=== PATIENT | female | born 1970 | race Caucasian/White ===

== ENCOUNTER 2016-10-30 19:46 | Emergency (ER) | payer MEDICAID ==
[2016-10-30 20:23] VITALS: BP 134/89
[2016-10-30] MEDS ORDERED: Ketorolac INJ* 60 MG/2 ML VIAL IM ONE (22:26)
[2016-10-30] MEDS ORDERED: Orphenadrine Citrate IV* 30 MG/ML 2 ML VIAL IM ONE (22:26)
--- NOTE | 2016-10-30 23:08 | ED ---
Complex/Multi-Sys Presentation - History Of Current Complaint Chief Complaint: EDGeneral Time Seen by Provider: 10/30/16 20:23 - Allergies/Home Medications Allergies/Adverse Reactions: Allergies Allergy/AdvReac Type Severity Reaction Status Date / Time Hydromorphone [From Dilaudid] Allergy Rash Verified 10/30/16 20:27 Morphine Allergy Rash Verified 10/30/16 20:27 PMH/Surg Hx/FS Hx/Imm Hx Infectious Disease History: No Infectious Disease History: Denies: Traveled Outside the [place] in Last 30 Days - Social History Alcohol Use: None Substance Use Type: Reports: None Smoking Status (MU): Never Smoked Tobacco Physical Exam Vital Signs On Initial Exam: Initial Vitals Temp Pulse Resp BP Pulse Ox 96.7 F 75 18 127/86 100 10/30/16 19:50 10/30/16 19:50 10/30/16 19:50 10/30/16 19:50 10/30/16 19:50 Diagnostics - Vital Signs Vital Signs Temp Pulse Resp BP Pulse Ox 10/30/16 20:19 96.7 F 75 18 134/89 100 10/30/16 19:50 96.7 F 75 18 127/86 100 - Laboratory Lab Statement: Any lab studies that have been ordered have been reviewed, and results considered in the medical decision making process. Complex Multi-Symp Course/Dx - Diagnoses Provider Diagnoses: Insomnia, Restless leg syndrome Discharge - Discharge Plan Condition: Stable Disposition: HOME Patient Education Materials: Restless Legs Syndrome (ED), Insomnia (ED) Additional Instructions: Take medications as prescribed. Follow up with primary care provider for medication discussion.
== END 2016-10-30 23:23 | disposition home or self-care (01) ==
LOC: ED 19:46
DX: G47.00 Insomnia, unspecified (principal); G25.81 Restless legs syndrome; Z88.5 Allergy status to narcotic agent
CPT/HCPCS: 96372; 99281; J1885; J2360

== ENCOUNTER 2016-11-27 15:26 | Inpatient (IN) | payer MEDICARE, MEDICAID ==
[2016-11-27 17:40] LABS: Urine Bacteria Absent (Absent); Urine Bilirubin Negative (Negative); Urine Glucose Negative (Negative); Urine Nitrite Negative (Negative)
[2016-11-27 18:00] LABS: Hematocrit 40 % (35-47); Hemoglobin 13.3 g/dl (12.0-16.0); Mean Corpuscular HGB Conc 34 g/dl (31-36); Mean Corpuscular Hemoglobin 32 pg (27-31); Mean Corpuscular Volume 94 fL (80-97); Mean Platelet Volume 9 um3 (7.4-10.4); Red Blood Count 4.22 10^6/ul (4.0-5.4); Red Cell Distribution Width 14 % (10.5-15); White Blood Count 11.8 10^3/ul (3.5-10.8)
[2016-11-27 18:03] LABS: Add Diff/Slide Review? Slide Review Added; Comments Flag Yes
[2016-11-27 18:07] LABS: Benzodiazepine Urine Screen None Detected (None Detect)
[2016-11-27 18:15] LABS: ALT 9 U/L (7-52); AST 15 U/L (13-39); Albumin 4.6 g/dL (3.2-5.2); Alkaline Phosphatase 66 U/L (34-104); Anion Gap 5 mmol/L (2-11); BUN/Creatinine Ratio 9.6 (8-20); Blood Urea Nitrogen 9 mg/dL (6-24); CO2 Carbon Dioxide 30 mmol/L (22-32); Calcium 9.8 mg/dL (8.6-10.3); Chloride 103 mmol/L (101-111); EGFR African American 82.4 (>60); EGFR Non-African American 64.1 (>60); Globulin 2.7 g/dL (2-4); Glucose 79 mg/dL (70-100); Sodium 138 mmol/L (133-145); Total Protein 7.3 g/dL (6.4-8.9)
[2016-11-27 18:34] LABS: Acetaminophen < 15 mcg/mL; Alcohol < 10 mg/dL (<10); Salicylate < 2.50 mg/dL (<30)
[2016-11-27 18:44] LABS: TSH (Thyroid Stimulating Horm) 1.11 mcIU/mL (0.34-5.60)
[2016-11-27] MEDS ORDERED: oxyCODONE TAB* 5 MG TAB PO ONE (21:02)
[2016-11-27] MEDS ORDERED: HYDROcodone/ACETAMIN 5-325 MG* 1 TAB PO ONE (21:02)
[2016-11-27] MEDS ORDERED: Al Hydrox/Mg Hydrox/Simet LIQ* 30 ML UDC PO PRN (21:59)
[2016-11-27] MEDS ORDERED: Acetaminophen TAB* 325 MG PO PRN (21:59)
[2016-11-27] MEDS: QUEtiapine XR TAB* 200 MG PO SCH (22:20)
[2016-11-27] MEDS: Pramipexole TAB* 0.125 MG PO SCH (22:21)
[2016-11-28] MEDS: Hydrocodone/Acetamin 10/325 1 TAB PO PRN ×4 (00:25→20:20)
[2016-11-28] MEDS: Mouth Piece, Nicotine* 1 EACH CARTRIDGE INH ONE ×2 (07:18→09:35)
--- NOTE | 2016-11-28 08:14 | ED ---
Milvia Garay Edward, scribed for Tyson Hannah MD on 11/27/16 at 1724 . Psychiatric Complaint - HPI Summary HPI Summary: 46 y/o female presents to the ED c/o chronic depression and suicidal thoughts. Patient states she moved to [place] in August of 2016, but that her sx have been going on for a while before. Patient states she has lost her appetite and had sleep disturbance. She also c/o SI thoughts and attempts. PMHx depression and anxiety. - History Of Current Complaint Chief Complaint: EDMentalHealth Time Seen by Provider: 11/27/16 16:48 Hx Obtained From: Patient Onset/Duration: Gradual Onset, Lasting Weeks, Still Present Character: Depressed, Anxious Associated Signs And Symptoms: Positive: Sleep Disturbance, Appetite Change Has Suicidal: Reports: Thoughts. Denies: With A Plan - Allergies/Home Medications Allergies/Adverse Reactions: Allergies Allergy/AdvReac Type Severity Reaction Status Date / Time Hydromorphone [From Dilaudid] Allergy Rash Verified 11/27/16 20:45 Morphine Allergy Rash Verified 11/27/16 20:45 PMH/Surg Hx/FS Hx/Imm Hx Previously Healthy: No Psychiatric History: Reports: Hx Anxiety, Hx Depression Infectious Disease History: Denies: Traveled Outside the [place] in Last 30 Days - Social History Alcohol Use: None Hx Substance Use: No Substance Use Type: Reports: None Hx Tobacco Use: Yes Smoking Status (MU): Current Every Day Smoker Type: Cigarettes Review of Systems Constitutional: Negative Eyes: Negative ENT: Negative Cardiovascular: Negative Respiratory: Negative Gastrointestinal: Negative Genitourinary: Negative Musculoskeletal: Negative Skin: Negative Neurological: Negative Positive: Anxious, Depressed, Other - Loss of appetite, sleep disturbance, SI thoughts without a plan All Other Systems Reviewed And Are Negative: Yes Physical Exam - Summary Physical Exam Summary: VITAL SIGNS:~Reviewed. GENERAL:~ Patient is a well-developed and nourished female who is lying comfortable in the stretcher.~ Patient is not in any acute respiratory distress. HEAD AND FACE:~No signs of trauma.~ No ecchymosis, hematomas or skull depressions. No sinus tenderness. EYES:~PERRLA, EOMI x 2, No injected conjunctiva, no nystagmus. EARS:~Hearing grossly intact. Ear canals and tympanic membranes are within normal limits. MOUTH:~Oropharynx within normal limits. NECK:~Supple, trachea is midline, no adenopathy, no JVD, no carotid bruit, no c- spine tenderness, neck with full ROM. CHEST:~Symmetric, no tenderness at palpation LUNGS:~Clear to auscultation bilaterally. No wheezing or crackles. CVS:~Regular rate and rhythm, S1 and S2 present, no murmurs or gallops appreciated. ABDOMEN:~Soft, non-tender. No signs of distention. No rebound no guarding, and no masses palpated. Bowel sounds are normal. EXTREMITIES:~FROM in all major joints, no edema, no cyanosis or clubbing. NEURO:~Alert and oriented x 3. No acute neurological deficits. Speech is normal and follows commands. SKIN:~Dry and warm PSYCH:~Depressed, quiet, and has suicidal thoughts without a plan. No homicidal thoughts or plan. No signs of psychosis or pressure speech. No tangential speech. Triage Information Reviewed: Yes Vital Signs On Initial Exam: Initial Vitals Temp Pulse Resp BP Pulse Ox 99.3 F 90 20 116/86 97 11/27/16 15:29 11/27/16 15:29 11/27/16 15:29 11/27/16 15:29 11/27/16 15:29 Vital Signs Reviewed: Yes Diagnostics - Vital Signs Vital Signs Temp Pulse Resp BP Pulse Ox 11/27/16 15:29 99.3 F 90 20 116/86 97 - Laboratory Lab Results: Lab Results 11/27/16 11/27/16 11/27/16 Range/Units 17:17 17:17 17:52 WBC 11.8 H (3.5-10.8) 10^3/ul RBC 4.22 (4.0-5.4) 10^6/ul Hgb 13.3 (12.0-16.0) g/dl Hct 40 (35-47) % MCV 94 (80-97) fL MCH 32 H (27-31) pg MCHC 34 (31-36) g/dl RDW 14 (10.5-15) % Plt Count 269 (150-450) 10^3/ul MPV 9 (7.4-10.4) um3 Neut % (Auto) 44.5 (38-83) % Lymph % (Auto) 43.8 (25-47) % Kent % (Auto) 6.9 (1-9) % Eos % (Auto) 3.9 (0-6) % Baso % (Auto) 0.9 (0-2) % Absolute Neuts (auto) 5.2 (1.5-7.7) 10^3/ul Absolute Lymphs (auto) 5.2 H (1.0-4.8) 10^3/ul Absolute Monos (auto) 0.8 (0-0.8) 10^3/ul Absolute Eos (auto) 0.5 (0-0.6) 10^3/ul Absolute Basos (auto) 0.1 (0-0.2) 10^3/ul Absolute Nucleated RBC 0.01 10^3/ul Nucleated RBC % 0.1 Hem Pathologist Commnt Pending Sodium (133-145) mmol/L Potassium (3.5-5.0) mmol/L Chloride (101-111) mmol/L Carbon Dioxide (22-32) mmol/L Anion Gap (2-11) mmol/L BUN (6-24) mg/dL Creatinine (0.51-0.95) mg/dL Est GFR ( Amer) (>60) Est GFR (Non-Af Amer) (>60) BUN/Creatinine Ratio (8-20) Glucose (70-100) mg/dL Calcium (8.6-10.3) mg/dL Total Bilirubin (0.2-1.0) mg/dL AST (13-39) U/L ALT (7-52) U/L Alkaline Phosphatase (34-104) U/L Total Protein (6.4-8.9) g/dL Albumin (3.2-5.2) g/dL Globulin (2-4) g/dL Albumin/Globulin Ratio (1-3) TSH (0.34-5.60) mcIU/mL Urine Color Yellow Urine Appearance Clear Urine pH 6.0 (5-9) Ur Specific Hol[place] 1.005 L (1.010-1.030) Urine Protein Negative (Negative) Urine Ketones Negative (Negative) Urine Blood 1+ H (Negative) Urine Nitrate Negative (Negative) Urine Bilirubin Negative (Negative) Urine Urobilinogen Negative (Negative) Ur Leukocyte Esterase Negative (Negative) Urine WBC (Auto) Trace(0-5/hpf) (Absent) Urine RBC (Auto) Trace(0-2/hpf) (Absent) Ur Squamous Epith Cells Present H (Absent) Ur Renal Epithelial Cell Present H (Absent) Urine Bacteria Absent (Absent) Urine Glucose Negative (Negative) Salicylates (<30) mg/dL Urine Opiates Screen Presumptive positive H (None Detect) Acetaminophen mcg/mL Ur Barbiturates Screen None detected (None Detect) Ur Phencyclidine Scrn None detected (None Detect) Ur Amphetamines Screen None detected (None Detect) U Benzodiazepines Scrn None detected (None Detect) Urine Cocaine Screen None detected (None Detect) U Cannabinoids Screen None detected (None Detect) Serum Alcohol (<10) mg/dL 11/27/16 Range/Units 17:52 WBC (3.5-10.8) 10^3/ul RBC (4.0-5.4) 10^6/ul Hgb (12.0-16.0) g/dl Hct (35-47) % MCV (80-97) fL MCH (27-31) pg MCHC (31-36) g/dl RDW (10.5-15) % Plt Count (150-450) 10^3/ul MPV (7.4-10.4) um3 Neut % (Auto) (38-83) % Lymph % (Auto) (25-47) % Kent % (Auto) (1-9) % Eos % (Auto) (0-6) % Baso % (Auto) (0-2) % Absolute Neuts (auto) (1.5-7.7) 10^3/ul Absolute Lymphs (auto) (1.0-4.8) 10^3/ul Absolute Monos (auto) (0-0.8) 10^3/ul Absolute Eos (auto) (0-0.6) 10^3/ul Absolute Basos (auto) (0-0.2) 10^3/ul Absolute Nucleated RBC 10^3/ul Nucleated RBC % Hem Pathologist Commnt Sodium 138 (133-145) mmol/L Potassium 4.0 (3.5-5.0) mmol/L Chloride 103 (101-111) mmol/L Carbon Dioxide 30 (22-32) mmol/L Anion Gap 5 (2-11) mmol/L BUN 9 (6-24) mg/dL Creatinine 0.94 (0.51-0.95) mg/dL Est GFR ( Amer) 82.4 (>60) Est GFR (Non-Af Amer) 64.1 (>60) BUN/Creatinine Ratio 9.6 (8-20) Glucose 79 (70-100) mg/dL Calcium 9.8 (8.6-10.3) mg/dL Total Bilirubin 0.40 (0.2-1.0) mg/dL AST 15 (13-39) U/L ALT 9 (7-52) U/L Alkaline Phosphatase 66 (34-104) U/L Total Protein 7.3 (6.4-8.9) g/dL Albumin 4.6 (3.2-5.2) g/dL Globulin 2.7 (2-4) g/dL Albumin/Globulin Ratio 1.7 (1-3) TSH 1.11 (0.34-5.60) mcIU/mL Urine Color Urine Appearance Urine pH (5-9) Ur Specific Hol[place] (1.010-1.030) Urine Protein (Negative) Urine Ketones (Negative) Urine Blood (Negative) Urine Nitrate (Negative) Urine Bilirubin (Negative) Urine Urobilinogen (Negative) Ur Leukocyte Esterase (Negative) Urine WBC (Auto) (Absent) Urine RBC (Auto) (Absent) Ur Squamous Epith Cells (Absent) Ur Renal Epithelial Cell (Absent) Urine Bacteria (Absent) Urine Glucose (Negative) Salicylates < 2.50 (<30) mg/dL Urine Opiates Screen (None Detect) Acetaminophen < 15 mcg/mL Ur Barbiturates Screen (None Detect) Ur Phencyclidine Scrn (None Detect) Ur Amphetamines Screen (None Detect) U Benzodiazepines Scrn (None Detect) Urine Cocaine Screen (None Detect) U Cannabinoids Screen (None Detect) Serum Alcohol < 10 (<10) mg/dL Result Diagrams: 11/27/16 17:52 11/27/16 17:52 Lab Statement: Any lab studies that have been ordered have been reviewed, and results considered in the medical decision making process. Course/Dx - Course Assessment/Plan: 46 y/o female presents to the ED c/o chronic depression and suicidal thoughts. Patient states she moved to [place] in August of 2016, but that her sx have been going on for a while before. Patient states she has lost her appetite and had sleep disturbance. She also c/o SI thoughts and attempts. PMHx depression and anxiety. Test results were without significant abnormalities except WBC 11.8. Positive for presumptive opiates. At this point the patient was medically clear and waiting mental health evaluation. Pt will be signed out to Dr. Valle to follow up the MHU evaluation. The patient is hemodynamically stable and A&Ox3. - Differential Dx/Clinical Impression Differential Diagnosis/HQI/PQRI: Positive: Depression, Suicidal Ideation Provider Diagnosis: Depression, Suicidal ideation Discharge - Discharge Plan Condition: Stable Disposition: OTHER Discharge Disposition Comment: Sign out to Dr. Valle, awaiting MHU evaluation. The documentation as recorded by the Milvia francis Edward accurately reflects the service I personally performed and the decisions made by , Tyson Hannah MD.
[2016-11-28] MEDS: Vitamin THERAPEUTIC TAB PO SCH (08:44)
[2016-11-28] MEDS: Nicotine Inhaler* 10 MG AMP INH PRN ×2 (09:35→15:30)
[2016-11-28] MEDS ORDERED: traZODone TAB* 50 MG TAB PO PRN (12:31)
[2016-11-28] MEDS: Venlafaxine EXT RELEASE CAP* 37.5 MG PO SCH (12:55)
--- NOTE | 2016-11-28 16:33 | ADMNOTE ---
Identification - Identify Employment Status: Disabled Hx Psychiatric Hospitalization: Yes - In [place] 10 years ago Arrived to Hospital Via: Ambulatory History - Objective HPI: 46 y/o disabled WF with depression for a long time brought self to the Ed due to worsening of depressive symptoms over last several months to a point that she cannot take it any more and thought about ending her life either by jumping off the roof or shooting self with a gun. Says she feels terribly sad, crying all the time, feeling helpless, worthless and a burden on her brother. Exam Appearance: Thin Framed Hygiene: Normal Grooming: Disheveled Psychomotor Activities: Normal Exhibits Abnormal Movement: No Attitude and Relatedness: Superficially Cooperative Eye Contact: Fair - Speech Quality: Pressured Latencies: Normal Quantity: Appropriate Patient's Decription of Mood: "Okay" Observed Affect: Constricted Patient's Thought Process: Circumstantial Thought Content: No Passive Wish, No Suicidal Planning, No Homicidal Ideation, No Paranoid Ideation Experiencing Hallucinations: No, Sensorium is Clear Type of Hallucinations: Visual: No, Auditory: No, Command: No Level of Consciousness: Alert Orientation: Yes Intact, Yes Orientated to Time, Yes Orientated to Place, Yes Orientated to Person Impulse Control: Poor Insight and Judgement: Impaired Impression - Impression Clinical Impression: 46 y/o WF with a long h/o depression, a prior h/o OD admitted on ICU following an OD on over the counter sleep aid resulting in an ICU admission. She appears to be evassive, manipulative and minimizing the intensity of use of sleeping pill raising a concern of her safely at home where she lives alone. Evidently her insight and judgment is so poor that she is unable to acknowledge the dangers involved in her use of both prescribed and over the counter meds. She is unwilling to take meds to help her depression and remaines an unreliable historian. Merits Inpatient Hospitalization: Yes - [place] [facility] Mental Illness: MDD, recurrent, severe w/o psychosis - [place] [facility] Medical Illness: S/P OD Plan - Treatment Plan Continued Medication Management: Consider Medication Medications: Current Medications Acetaminophen (Tylenol Tab*) 650 mg PO Q4H PRN PRN Reason: PAIN or TEMP > 101 F Hydrocodone Bitart/Acetaminophen ([place] 10/325 (Nf)) 1 tab PO TID PRN PRN Reason: PAIN Last Admin: 11/28/16 13:22 Dose: 1 tab Al Hydrox/Mg Hydrox/Simethicone (Maalox Plus*) 30 ml PO Q4H PRN PRN Reason: INDIGESTION Multivitamins (Theragran Tab*) 1 tab PO DAILY [facility] Last Admin: 11/28/16 08:44 Dose: 1 tab Nicotine (Nicotine Inhaler*) 10 mg INH Q2H PRN PRN Reason: CRAVING Last Admin: 11/28/16 15:30 Dose: 10 mg Pramipexole Dihydrochloride (Mirapex Tab*) 0.25 mg PO BEDTIME [facility] Last Admin: 11/27/16 22:21 Dose: 0.25 mg Quetiapine Fumarate (Seroquel Xr Tab*) 400 mg PO BEDTIME [facility] Last Admin: 11/27/16 22:20 Dose: 400 mg Trazodone HCl (Desyrel Tab*) 50 mg PO BEDTIME PRN PRN Reason: AGITATION/INSOMNIA Venlafaxine HCl (Effexor Xr Cap*) 37.5 mg PO DAILY [facility] Last Admin: 11/28/16 12:55 Dose: 37.5 mg - Discharge Plan Discharge Plan: Inpatient Hospitalization - On BSU.
[2016-11-28] MEDS: QUEtiapine XR TAB* 200 MG PO SCH (21:01)
[2016-11-28] MEDS: Pramipexole TAB* 0.125 MG PO SCH (21:02)
--- NOTE | 2016-11-28 21:33 | HP ---
HISTORY AND PHYSICAL: DATE OF ADMISSION: IDENTIFYING DATA: Madeleine is a 46-year-old both mentally and physically disabled female w ith one prior history of hospitalization in [place] years ago, came to the [facility] Emergency Department advised by her [facility] therapist for a psychia tric evaluation in the context of worsening depression and ongoing suicidal ideation with plans. CHIEF COMPLAINT: "I have been so depressed for months now." HISTORY OF PRESENT ILLNESS: Madeleine with a history of depression for years reports that her depress ion has been gradually worsening over the last few months. It is so bad now that she cannot take it anymore and was thinking about either jumping off a roof or shoot herself with firearms. She descr ibes her depression as terrible, sadness, crying almost all the time, lethargic, unmotivated, and ho peless. She does not think her life is worth it living like this any more, feels guilty about being a burden on her older brother, who has to take care of her all the time. She has not been showerin g or bathing for months now and does not have any desire to do so. She does not eat because she benites s not have any appetite and her sleep is terribly poor. Said she sleeps approximately 3 to 4 hours per night, even if she falls asleep, wakes up within no time and cannot go back to sleep again. Alt joao she suffers from restless legs syndrome, her symptoms were in good control since she was put o n medications for restless legs syndrome. She denies any stressors at this time. PAST PSYCHIATRIC HISTORY: Remarkable for another hospitalization years ago in [place] under almost similar circumstances. She goes to [facility] and sees Dr. Garcia and a therapist. Throughout the years, she was tried on different antidepressants and other medicat ions for depression. She reports that Zoloft, Paxil, and Wellbutrin were worse because of their side effects. She took Effexor long time ago for years. She says she never had any serious side effect from Effexor, although does not remember how effective Effexor was. PAST MEDICAL HISTORY: Remarkable for scoliosis and restless legs syndrome. ALLERGIES: She has allergies to multiple medications including HYDROMORPHONE and MORPHINE both of w hich causes rash. SUBSTANCE ABUSE HISTORY: Denies using any drugs or alcohol. FAMILY HISTORY: Madeleine is from an intact family, she has one older brother and a sister. She also has 2 sons, one 18-year-old and the other 16-year-old. Of all these family members, she thinks her mother was seriously depressed; however, never received any treatment. Her sister and older son pierce ffer from depression and they are under treatment. Her son was hospitalized as well. She reports t hat her mother was adopted and does not know if there are extended family members who have had menta l illness. PERSONAL AND SOCIAL HISTORY: Madeleine had a pretty normal upbringing up until years ago when she bec ant physically incapable of doing anything because of her scoliosis. At the same time, she also suf fered from depression. She was and has 2 sons, 18-year-old and 16-year-old boys, who live [facility] with their dad. 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 Currently disabled on [facility] disability benefits. She [place] older [place]'s [place] Denies any legal problems. PHYSICAL EXAMINATION Physical exam was offered, Madeleine flatly declined. I have reviewed her vital signs, labs as well a s physical done in the emergency department, which were unremarkable. She does not appear to be in any kind of physical distress at this time. Her vitals show a blood pressure of 116/86, pulse of 90 , respirations 20, pulse ox 97%. MENTAL STATUS EXAMINATION: Madeleine is a thin-framed, short-statured, female with poor pe rsonal hygiene and grooming. She is wearing a hospital scrub. She is alert and oriented to time, pl abisai, and person, makes poor eye contact, mostly tearful during the entire evaluation process. Descr ibes her mood as depressed. Observed affect, tearful and dysphoric. There is no evidence of though ts, perceptual, or psychomotor disturbances. Continues to have active suicidal thoughts and plans i f she has a chance to get up on the roof and jump, or have access to gun to shoot herself. Memory f unction is intact in all spheres. Intelligence appears to be average as evidenced by her educational background, vocabulary, and fund of knowledge. Insight and judgment: Intact. LABORATORY DATA: Include CBC with differential, comprehensive metabolic profile, urinalysis, and ur ine drug screen. CBC shows a WBC of 11.8, which is higher than normal, hemoglobin 13.3, hematocrit 40, MCV 94 which is on the higher normal range, platelet count 296, rest of the results shows normal report. Comprehensive metabolic profile shows a sodium level of 138, potassium 4, chloride 103, ca rbon dioxide 30, BUN 9, creatinine 0.94, GFR of 64.1. Hepatic profile is within normal limits. Tox screen negative. Urinalysis also was unremarkable. SUMMARY: This 46-year-old female with long history of depression and physical disability presents to the emergency department complaining of worsening of depressive symptoms in recent month s to the point that she became suicidal with plans. MENTAL HEALTH DIAGNOSIS: Major depressive disorder, recurrent, severe without psychotic features. PHYSICAL HEALTH DIAGNOSES: Scoliosis and restless legs syndrome. TREATMENT RECOMMENDATIONS: Madeleine will remain hospitalized on behavioral health unit for her safet y, diagnostic evaluation, and medication management. Her code status will remain full. Supportive milieu, individual, and group therapy will be initiated. I will continue her on her outpatient medi cations and add Effexor XR 37.5 mg daily. To help her sleep, I will consider trazodone to begin wit h and see how she does, otherwise may try some other sleep aid. [id number]/[facility] #: [id number]
[2016-11-29] MEDS: Vitamin THERAPEUTIC TAB PO SCH (09:55)
[2016-11-29] MEDS: Venlafaxine EXT RELEASE CAP* 37.5 MG PO SCH (09:55)
[2016-11-29] MEDS: Hydrocodone/Acetamin 10/325 1 TAB PO PRN ×3 (11:09→21:20)
[2016-11-29] MEDS: Nicotine Inhaler* 10 MG AMP INH PRN (20:19)
[2016-11-29] MEDS: Pramipexole TAB* 0.125 MG PO SCH (21:16)
[2016-11-29] MEDS: QUEtiapine XR TAB* 200 MG PO SCH (21:16)
[2016-11-30] MEDS: Vitamin THERAPEUTIC TAB PO SCH (08:54)
[2016-11-30] MEDS: Hydrocodone/Acetamin 10/325 1 TAB PO PRN ×3 (08:56→20:09)
[2016-11-30] MEDS: Venlafaxine EXT RELEASE CAP* 37.5 MG PO SCH (09:07)
--- NOTE | 2016-11-30 11:38 | PN ---
MHU: Group Therapy Note - Service Type Service Type: [id number] Group Psychotherapy - Cognitive Behavioral Group Therapy ( CBT):Patient was attentive and participatory in CBT programming this morning, and remained in good behavioral control. Patient expressed positive insights regarding relevant treatment interventions and goals.
[2016-11-30] MEDS ORDERED: QUEtiapine TAB* 100 MG PO PRN (16:06)
--- NOTE | 2016-11-30 16:22 | PN ---
Subjective - Subjective Subjective: Patient reports feeling "tired" and anxious. She endorses continued depression. She states she felt shaky and "overstimulated" with trial of effexor. She states that most medications have drastic side effects. She reports recent trials of saphris and viibryd caused severe nausea and vomiting. Xiomara states she moved to the area from [place] in august. Since then , she had to change from methadone to vicodin for pain control due to insurance and medication interactions. She is now taking mirapex for restless leg syndrome and that has many drug-drug interactions. However, she continues to have poor sleep due to frequent interruption and early waking. I-stop denotes consistent information: clonazepam from Dr Garcia, methadone then vicodin from PCP, Dr Taylor. [facility] ref#[id number]. Objective - Appearance Appearance: Thin Framed Dysmorphic Features: Yes Hygiene: Normal Grooming: Well Kept - Behavior Psychomotor Activities: Abnormal-Decreased Exhibits Abnormal Movement: No - Attitude and Relatedness Attitude and Relatedness: Cooperative Eye Contact: Good - Speech Quality: Unpressured Latencies: Normal Quantity: Appropriate - Mood Patient's Decription of Mood: "tired" - Affect Observed Affect: Depressed Affect Consistent with: Dysphoria - Thought Process Patient's Thought Process: Coherent, Goal Directed Thought Content: No Passive Wish, No Suicidal Planning, No Homicidal Ideation, No Paranoid Ideation - Sensorium Experiencing Hallucinations: No, Sensorium is Clear Type of Hallucinations: Visual: No, Auditory: No, Command: No - Level of Consciousness Level of Consciousness: Alert Orientation: Yes Intact, Yes Orientated to Time, Yes Orientated to Place, Yes Orientated to Person - Impulse Control Impulse Control: Intact - Insight and Judgement Insight and Judgement: Good - Group Participation Particating in Group Activities: Yes Assessment - Assessment Merits Inpatient Hospitalization: For Immediate Safety, To Initiate Treatment, For Discharge Planning Inpatient DSM-IV Dx: major depressive d/o; insomnia. axis III: scoliosis Clinical Impression: Xiomara is a 46yo white female who relocated to the area from [place] in August of this year. She reports feeling depressed, overwhelmed and unable to sleep due to depression and stressors. She reports many trials of psychopharmacology, complicated by side effects and drug interactions with medications for scoliosis. Plan - Plan Treatment Plan: Name: XIOMARA LUDWIG Birthdate: 1970 [id number] Change quetiapine XR to earlier in the evening and add prn IR dose. Decrease safety checks to q30 min and allow staff pass. Continue supportive milieu and individual, group therapy. Discharge planning to include outpatient providers. Continued Medication Management: Different Medication Medications: Current Medications Acetaminophen (Tylenol Tab*) 650 mg PO Q4H PRN PRN Reason: PAIN or TEMP > 101 F Hydrocodone Bitart/Acetaminophen (Himrod 10/325 (Nf)) 1 tab PO TID PRN PRN Reason: PAIN Last Admin: 11/30/16 14:02 Dose: 1 tab Al Hydrox/Mg Hydrox/Simethicone (Maalox Plus*) 30 ml PO Q4H PRN PRN Reason: INDIGESTION Clonazepam (Klonopin Tab(*)) 1 mg PO BID PRN PRN Reason: ANXIETY Multivitamins (Theragran Tab*) 1 tab PO DAILY CHRISTOFER Last Admin: 11/30/16 08:54 Dose: 1 tab Nicotine (Nicotine Inhaler*) 10 mg INH Q2H PRN PRN Reason: CRAVING Last Admin: 11/29/16 20:19 Dose: 10 mg Pramipexole Dihydrochloride (Mirapex Tab*) 0.25 mg PO BEDTIME CHRISTOFER Last Admin: 11/29/16 21:16 Dose: 0.25 mg Quetiapine Fumarate (Seroquel Tab*) 100 mg PO BEDTIME PRN PRN Reason: INSOMNIA Quetiapine Fumarate (Seroquel Xr Tab*) 400 mg PO 1999 [facility] - Discharge Plan Discharge Plan: Outpatient Follow Up Outpatient Program: [facility]
[2016-11-30] MEDS ORDERED: QUEtiapine XR TAB* 200 MG PO SCH (20:00)
[2016-11-30] MEDS: Pramipexole TAB* 0.125 MG PO SCH (20:10)
[2016-11-30] MEDS: clonazePAM TAB(*) 1 MG PO PRN (20:11)
[2016-12-01 07:24] VITALS: BP 115/67
[2016-12-01] MEDS: Hydrocodone/Acetamin 10/325 1 TAB PO PRN (08:57)
[2016-12-01] MEDS: Vitamin THERAPEUTIC TAB PO SCH (08:57)
[2016-12-01] MEDS: clonazePAM TAB(*) 1 MG PO PRN (12:51)
[2016-12-01] MEDS: Nicotine Inhaler* 10 MG AMP INH PRN (12:51)
--- NOTE | 2016-12-01 13:56 | PN ---
[facility]: Group Therapy Note - Service Type Service Type: [id number] Group Psychotherapy - Cognitive Behavioral Group Therapy ( CBT):Patient was attentive and participatory in CBT programming this morning, and remained in good behavioral control. Patient expressed positive insights regarding relevant treatment interventions and goals.
--- NOTE | 2016-12-01 15:02 | DS ---
CC: Dr. Jett Taylor* DATE OF ADMISSION: 11/27/2016. DATE OF DISCHARGE: 12/01/2016. SUPERVISING PSYCHIATRIST: Dr. Tony Smith* (dictated by LAKIA Chandler) . DISCHARGE DIAGNOSES: AXIS I: Major depressive disorder, recurrent, severe without psychotic features ; generalized anxiety disorder. AXIS II: Deferred. AXIS III: Scoliosis and restless leg syndrome. AXIS IV: Moderate stressors related to transitioning from another state and social isolation; and stressors related to pain control and primary medical care. AXIS V: 45. CONDITION AT THE TIME OF DISCHARGE: Improved. Madeleine reports much improved mood and denies SI since admission. She reports some improvement in sleep, which was a large attributing factor to her presentation. Madeleine reports that she is coping with transition from moving from [place] to the [facility]. She states she has a very good rapport with her outpatient therapist and is looking forward to returning to an appointment with her on . Madeleine was in agreement with discharge planning suggestion for help with case management. MENTAL STATUS EXAM: Madeleine was well-groomed and present in the milieu. She is a small, thin-framed, petite woman who appears her stated age. She is dressed in her own clothes and walks with a walker. She presents as euthymic, cooperative and talkative. She is alert and oriented times three. Concentration is good. Recall is 3/3. Her mood is "good." Affect is congruent. Her speech is soft and articulate. Thought process is logical and goal-directed, coherent. Thought content negative for SI, HI, , or SIB urges. Negative for preoccupations, delusions, or phobias. Her insight is good. Her judgment is good. Fund of knowledge is excellent. HOSPITAL COURSE: Reason for admission: Madeleine presented to the emergency room as advised by her therapist from [facility] due to worsening depression and SI with plan. Madeleine has a history of major depressive disorder, along with worsening physical problems of scoliosis and restless leg syndrome. She relocated to the area from [place] in August of this year. Psychiatric treatment rendered: Madeleine was admitted to the Adult Mental Health Unit under voluntary status. She was placed on 15 minute checks and her code status was full. She was encouraged to engage in supportive milieu, individual and group therapy. The admitting physician added Venlafaxine XR 37.5 mg. She stopped taking this due to feeling overstimulated. Trazodone was also ordered, but Madeleine recalls feeling a paroxysmal effect with this medication in the past, so she did not take this either. She was agreeable to the extended release of Quetiapine 400 mg, as well as quetiapine immediate release 100 mg prn insomnia. She reports a long history of Klonopin use 1 mg b.i.d. and requested that this be reinitiated. She reports improvement in sleep with these medications. After three days on the unit, she denied suicidal ideation. She reported her mood to be improved. She was safe on all checks and she was forward thinking. She wanted to make sure she would be discharged in time for her appointment with her therapist on . She agreed to discharge planning, assistance with setting up case management. She will see therapist, Kate on and psychiatrist Dr. Garcia at [facility] in the next month. She will be given discharge instructions from nursing staff. She called her brother to pick her up today, which he will do so after he gets off work at 5:00 p.m. FERMÍN FINNEGAN NP [id number]/[facility] #: [id number] MANUEL
== END 2016-12-01 15:07 | disposition home or self-care (01) | DRG 885 ==
LOC: ED 15:26 → BSU 21:54
PROVIDERS: ADMIT Psychiatry & Neurology Psychiatry; ATTEND Psychiatry & Neurology Psychiatry
PROC: GZHZZZZ Group Psychotherapy (ICD-10-PCS; principal; 2016-11-27)
DX: F33.2 Major depressive disorder, recurrent severe without psychotic features (principal); M41.9 Scoliosis, unspecified; F41.1 Generalized anxiety disorder; G25.81 Restless legs syndrome; F17.210 Nicotine dependence, cigarettes, uncomplicated; G47.00 Insomnia, unspecified; Z88.5 Allergy status to narcotic agent; Z81.8 Family history of other mental and behavioral disorders
CPT/HCPCS: 36415; 80053; 80307; 80320; 80329; 81003; 81015; 84443; 85025; 85060; 90853; 99222; 99231; 99238; A9270-GY; G0480

== ENCOUNTER 2018-01-31 19:20 | Emergency (ER) | payer MEDICARE, MEDICAID ==
[2018-01-31] MEDS ORDERED: Diazepam TAB(*) 5 MG PO ONE (21:25)
[2018-01-31] MEDS ORDERED: predniSONE TAB* 20 MG PO ONE (21:25)
--- OUTSIDE RECORDS SUMMARY | 2018-01-31 21:27 | XMS REPORT ---
:1970 External Reference #:[id number] Author Organization [facility] Address [address] [address] [place] [address] Phone [phone] Care Team Providers Name Role Phone Farhan Yu MD Primary Care Physician Unavailable Payers Type Date Identification Numbers Payment Provider Subscriber Medicare Primary Expires: Policy Number: Medicare Madeleine Pacheco 2016 [id number] PayID: [id number] [address] [place] [address] Commercial Effective: Policy Number: Beka Kellyg/Todays Madeleine Pacheco 2016 [id number] Options PayID: [id number] [address] [address] Attn: [place] [address] Medigap Part B Effective: 2016 Policy Number: [id number] Medicaid Madeleine Pacheco Group Name: 1 1 [address] PayID: [id number] [place] [address] Commercial Expires: 2016 Policy Number: Today's Option Of Madeleine Pacheco [id number] [place] PayID: [id number] [address] [address] [place] [address] Advance Directives Type Date Description Status Comment Other Directive 08/18/2017 Health Care Proxy Current and Verified Other Directive 01/25/2017 Health Care Proxy Current and Verified Problems Date Description Provider Status Onset: 08/13/2016 Panic disorder without agoraphobia Farhan Yu M.D. Active Onset: 08/13/2016 Mild recurrent major depression Farhan Yu M.D. Active Onset: 08/13/2016 Insomnia Farhan Yu M.D. Active Onset: 08/13/2016 Periodic limb movement disorder Farhan Yu M.D. Active Onset: 08/13/2016 Mixed hyperlipidemia Farhan Yu M.D. Active Onset: 08/13/2016 Low back pain Farhan Yu M.D. Active Onset: 02/09/2017 Chronic pain syndrome Farhan Yu M.D. Active Onset: 02/09/2017 Scoliosis deformity of spine Farhan Yu M.D. Active Onset: 02/09/2017 Shoulder joint pain Farhan Yu M.D. Active Family History Date Family Member(s) Problem(s) Comments Father Heart Disease Father Depression Mother Depression Social History Type Date Description Comments Marital Status Lives With Brother Occupation Disabled ETOH Use 11/06/2016 Denies alcohol use Smoking Light tobacco smoker (10 or fewer cigarettes/day) Recreational Drug Use Denies Drug Use General Hx Text 2 children Allergies, Adverse Reactions, Alerts Date Description Reaction Status Severity Comments 08/13/2016 Dilaudid active Moderate rash/itching 08/13/2016 Demerol active Mild nausea (pt states she is only allergic to pill form) 11/06/2016 Ketorolac Tromethamine active nausea 01/20/2018 Seasonal active Medications Medication Date Status Form Strength Qnty SIG Indications Ordering Provider Benzoyl Active Gel 5-3% 46.600g apply Farhan Peroxide-Eryt 017 m topicalyl to lyndsey Yu affected M.D. areas bid Methadone HCL Active Tablets 10mg 60tabs 1 tab by F11.90 Sarahi Dial 017 mouth twice D. [place], a jasmyne Palacio,FACP G89.4 Quetiapine 12/01/2016 Active Tablets 100mg 30tabs 1 tab at hs Other Fumarate prn Ordering insomnia Provider Vitamin D 11/20/2016 Active Capsules 1000Unit 90caps 3 by mouth Farhan (Cholecalciferol) every day Pia Yu 11/06/2016 Active Misc 1units wheeled Kenny Taylor M.D.,FACP Pramipexole 11/06/2016 Active Tablets 0.25mg 30tabs take one G47 Farhan Dihydrochloride tablet by .61 leonor Yu in M.D. evening Clonazepam Active Tablets 1mg take 1 F41 Unknown tablet .0 three times a day Latuda Active Tablets 60mg 1 by mouth Unknown every day Quetiapine Active Tablets 300mg take 2 tabs F33 Unknown Fumarate by mouth at .0 hs F41.0 G47.00 Amoxicillin/Clavul Hx Tablets 875-125 14tabs take 1 tab by J01.90 [place] anate Potassium 018 - mg mouth twice a [employer] day for 7 days 018 Nicotine Hx Gum 2mg 50unit 1 piece of gum F17.21 [place] Polacrilex 018 - s q1-2hr 0 [employer] 018 Tazarotene Hx Cream 0.1% 30gm use cream 2x [place] 017 - daily after [employer] genlty cleaning 017 face. start tx during menstrual period Metamucil Hx Capsules 0.52gm 30caps take 1 capsule R19.5 [place] 017 - daily with food [employer] and fluids September 018 increase to 2 tabs Venlafaxine HCL Hx Tablets 37.5mg 30tabs 1 by mouth Other Ordering 017 - every day Provider 017 Methadone HCL Hx Tablets 5mg 30tabs 1 by mouth 2x a G89.4 Sarahi Cueto - day Claudia, M.D.,FACP 017 G47.61 Hydrocodone-Acetaminophen 11/06/2016 Hx Tablets 10-325mg 90tabs 1 tab M54.5 Kenny - cathy Taylor, 12/05/2016 mouth M.D.,FACP every 6 hours as needed F11.90 Vitamin D3 11/02/2016 - Hx Capsules 5000Unit 90caps 1 by mouth Zsofia Ultra Strength 11/20/2016 every day [place], [employer] Hydroxyzine HCL 10/28/2016 - Hx Tablets 50mg 60tabs take 1 tab G47. Zsofia 11/20/2016 by mouth bid 00 [place], for anxiety, [employer] insomnia as needed Diclofenac 10/27/2016 - Hx Tablets DR 75mg 60tabs take one G47. Zsofia Sodium 03/25/2017 tablet by 61 [place], leonor twice [employer] a day M79.604 Percocet 10/14/2016 - Hx Tablets 10-325mg 30tabs 1 tab po hs M54.5 Zsofia 10/14/2016 MIKALA [place]cia Hydrocodone-A 10/14/2016 - Hx Tablets 7.5-325mg 30tabs take 1 tab M54.5 Zsofia cetaminophen 11/06/2016 po hs as MIKALA Murcia needed for pain F11.90 Percocet 08/13/2016 - Hx Tablets 7.5-325mg 30tabs once a day M54.5 [place] 10/14/2016 at bedtime Pia Yu Methadone HCL - Hx Tablets 10mg take one Unknown 08/13/2016 tablet twice daily Clonazepam - Hx Tablets 1mg 30tabs once a day F41.0 Zsofia 11/06/2016 MIKALA Murcia Bupropion HCL - Hx Tablets ER 100mg 45tabs take 1 1/2 [place] ER (SR) 10/14/2016 12HR tablet by leonor Yu once M.D. daily Lovaza - Hx Capsules 1gm take one Unknown 10/14/2016 capsule by mouth twice a day Viibryd - Hx Kit 10&20mg Unknown Starter Pack 02/09/2017 Quetiapine - Hx Tablets 400mg 30tabs Take One F33.0 Zsofia Fumarate 11/19/2017 Tablet By MIKALA [place]cia Mouth Once Daily AT Bedtime F41.0 G47.00 Immunizations CPT Code Status Date Vaccine Lot # [id number] Given 12/23/2010 Tdap - Tetanus/Diptheria/Acellular Pertussis Vital Signs Date Vital Result Comment 01/20/2018 Height 64 inches 5'4" Weight 143.00 lb Heart Rate 86 /min BP Systolic Sitting 110 mmHg BP Diastolic Sitting 74 mmHg Respiratory Rate 14 /min Body Temperature 97.3 F tympanic O2 % BldC Oximetry 95 % on Ra BMI (Body Mass Index) 24.5 kg/m2 09/24/2017 Height 64 inches 5'4" Weight 128.00 lb Heart Rate 78 /min BP Systolic Sitting 118 mmHg BP Diastolic Sitting 78 mmHg Body Temperature 98.1 F O2 % BldC Oximetry 96 % BMI (Body Mass Index) 22.0 kg/m2 08/18/2017 Height 64 inches 5'4" Weight 120.50 lb Heart Rate 92 /min BP Systolic Sitting 116 mmHg BP Diastolic Sitting 78 mmHg Body Temperature 98.5 F O2 % BldC Oximetry 98 % BMI (Body Mass Index) 20.7 kg/m2 03/25/2017 Weight 116.12 lb Heart Rate 78 /min BP Systolic Sitting 116 mmHg BP Diastolic Sitting 70 mmHg O2 % BldC Oximetry 98 % 02/09/2017 Height 64 inches 5'4" Weight 116.50 lb Heart Rate 64 /min BP Systolic 112 mmHg BP Diastolic 58 mmHg Body Temperature 98.1 F O2 % BldC Oximetry 95 % BMI (Body Mass Index) 20.0 kg/m2 01/20/2017 Weight 121.50 lb Heart Rate 71 /min BP Systolic Sitting 118 mmHg BP Diastolic Sitting 70 mmHg Body Temperature 97.7 F O2 % BldC Oximetry 98 % 11/26/2016 Weight 118.00 lb Heart Rate 93 /min BP Systolic Sitting 120 mmHg BP Diastolic Sitting 90 mmHg O2 % BldC Oximetry 98 % 11/20/2016 Height 64 inches 5'4" Weight 120.50 lb Heart Rate 87 /min BP Systolic Sitting 118 mmHg BP Diastolic Sitting 68 mmHg Body Temperature 98.8 F O2 % BldC Oximetry 99 % BMI (Body Mass Index) 20.7 kg/m2 11/06/2016 Weight 124.12 lb Heart Rate 77 /min BP Systolic Sitting 136 mmHg BP Diastolic Sitting 88 mmHg Body Temperature 98.3 F O2 % BldC Oximetry 98 % 10/28/2016 Weight 124.50 lb Heart Rate 83 /min BP Systolic Sitting 116 mmHg BP Diastolic Sitting 80 mmHg Body Temperature 98.3 F O2 % BldC Oximetry 98 % 10/14/2016 Weight 124.38 lb Heart Rate 76 /min BP Systolic Sitting 110 mmHg BP Diastolic Sitting 62 mmHg Body Temperature 97.2 F O2 % BldC Oximetry 98 % 09/15/2016 Height 64 inches 5'4" Weight 129.12 lb Heart Rate 80 /min BP Systolic Sitting 118 mmHg BP Diastolic Sitting 80 mmHg Body Temperature 97.0 F O2 % BldC Oximetry 98 % BMI (Body Mass Index) 22.2 kg/m2 08/13/2016 Height 64 inches 5'4" Weight 128.38 lb Heart Rate 74 /min BP Systolic Sitting 130 mmHg BP Diastolic Sitting 90 mmHg Body Temperature 97.4 F O2 % BldC Oximetry 97 % BMI (Body Mass Index) 22.0 kg/m2 Results Test Date Test Result H/L Range Note Laboratory test finding 03/04/2017 Vitamin D Total 25(Oh) 20.0 ng/mL 20- 50 Lipid Profile 03/04/2017 Triglycerides 149 mg/dL 1 (Trig/Chol/HDL) Cholesterol 211 mg/dL 2 HDL Cholesterol 36.6 mg/dL 3 LDL Cholesterol 145 mg/dL 4 Hla B27 03/04/2017 Hla B27 Negative 5 Hla B27 Interp See Comment 6 Laboratory test finding 03/04/2017 Erythrocyte Sed Rate 26 mm/Hr High 0- 14 C Reactive Protein 1.28 mg/L < 5.00 7 Comp Metabolic Panel 03/04/2017 Sodium 140 mmol/L 133-145 Potassium 4.3 mmol/L 3.5-5.0 Chloride 106 mmol/L 101-111 Co2 Carbon Dioxide 29 mmol/L 22-32 Anion Gap 5 mmol/L 2-11 Glucose 95 mg/dL 70-100 Blood Urea Nitrogen 9 mg/dL 6-24 Creatinine 0.85 mg/dL 0.51-0.95 BUN/Creatinine Ratio 10.6 8-20 Calcium 9.5 mg/dL 8.6-10.3 Total Protein 7.0 g/dL 6.4-8.9 Albumin 4.3 g/dL 3.2-5.2 Globulin 2.7 g/dL 2-4 Albumin/Globulin Ratio 1.6 1-3 Total Bilirubin 0.30 mg/dL 0.2-1.0 Alkaline Phosphatase 61 U/L 34-104 Alt 15 U/L 7-52 Ast 20 U/L 13-39 Egfr Non- 72.0 >60 Egfr 92.6 >60 8 CBC Auto Diff 03/04/2017 White Blood Count 8.1 10^3/uL 3.5-10.8 Red Blood Count 4.35 10^6/uL 4.0-5.4 Hemoglobin 13.4 g/dL 12.0-16.0 Hematocrit 40 % 35-47 Mean Corpuscular Volume 92 fL 80-97 Mean Corpuscular Hemoglobin 31 pg 27-31 Mean Corpuscular HGB Conc 34 g/dL 31-36 Red Cell Distribution Width 14 % 10.5-15 Platelet Count 290 10^3/uL 150-450 Mean Platelet Volume 9 um3 7.4-10.4 Abs Neutrophils 4.6 10^3/uL 1.5-7.7 Abs Lymphocytes 2.2 10^3/uL 1.0-4.8 Abs Monocytes 0.5 10^3/uL 0-0.8 Abs Eosinophils 0.7 10^3/uL High 0-0.6 Abs Basophils 0.1 10^3/uL 0-0.2 Abs Nucleated RBC 0 10^3/uL Granulocyte % 57.2 % 38-83 Lymphocyte % 27.1 % 25-47 Monocyte % 5.8 % 1-9 Eosinophil % 8.5 % High 0-6 Basophil % 1.4 % 0-2 Nucleated Red Blood Cells % 0 Urinalysis Profile 11/27/2016 Urine Color Yellow Urine Appearance Clear Urine Specific [place] 1.005 Low 1.010-1.030 Urine pH 6.0 5-9 Urine Urobilinogen Negative Negative Urine Ketones Negative Negative Urine Protein Negative Negative Urine Leukocytes Negative Negative Urine Blood 1+ Negative Urine Nitrite Negative Negative Urine Bilirubin Negative Negative Urine Glucose Negative Negative Urine White Blood Cell Trace(0-5/hpf) Absent Urine Red Blood Cell Trace(0-2/hpf) Absent Urine Bacteria Absent Absent Urine Squamous Epithelial Cell Present Absent Urine Renal Epithelial Cells Present Absent CBC Auto Diff 11/27/2016 White Blood Count 11.8 10^3/uL High 3.5-10.8 Red Blood Count 4.22 10^6/uL 4.0-5.4 Hemoglobin 13.3 g/dL 12.0-16.0 Hematocrit 40 % 35-47 Mean Corpuscular Volume 94 fL 80-97 Mean Corpuscular Hemoglobin 32 pg High 27-31 Mean Corpuscular HGB Conc 34 g/dL 31-36 Red Cell Distribution Width 14 % 10.5-15 Platelet Count 269 10^3/uL 150-450 Mean Platelet Volume 9 um3 7.4-10.4 Abs Neutrophils 5.2 10^3/uL 1.5-7.7 Abs Lymphocytes 5.2 10^3/uL High 1.0-4.8 Abs Monocytes 0.8 10^3/uL 0-0.8 Abs Eosinophils 0.5 10^3/uL 0-0.6 Abs Basophils 0.1 10^3/uL 0-0.2 Abs Nucleated RBC 0.01 10^3/uL Granulocyte % 44.5 % 38-83 Lymphocyte % 43.8 % 25-47 Monocyte % 6.9 % 1-9 Eosinophil % 3.9 % 0-6 Basophil % 0.9 % 0-2 Nucleated Red Blood Cells % 0.1 Urine Drug SCR ED & 11/27/2016 Amphetamine Ur Screen None Detected None Detect Pain Clinic Barbiturates Urine Screen None Detected None Detect Benzodiazepine Urine Screen None Detected None Detect Urine Cannabinoids Screen None Detected None Detect Urine Cocaine Screen None Detected None Detect Urine Opiates Screen Presumptive Posi <SEE NOTE> None Detect 9 Urine Phencyclidine Screen None Detected None Detect 10 Comp Metabolic Panel 11/27/2016 Sodium 138 mmol/L 133-145 Potassium 4.0 mmol/L 3.5-5.0 Chloride 103 mmol/L 101-111 Co2 Carbon Dioxide 30 mmol/L 22-32 Anion Gap 5 mmol/L 2-11 Glucose 79 mg/dL 70-100 Blood Urea Nitrogen 9 mg/dL 6-24 Creatinine 0.94 mg/dL 0.51-0.95 BUN/Creatinine Ratio 9.6 8-20 Calcium 9.8 mg/dL 8.6-10.3 Total Protein 7.3 g/dL 6.4-8.9 Albumin 4.6 g/dL 3.2-5.2 Globulin 2.7 g/dL 2-4 Albumin/Globulin Ratio 1.7 1-3 Total Bilirubin 0.40 mg/dL 0.2-1.0 Alkaline Phosphatase 66 U/L 34-104 Alt 9 U/L 7-52 Ast 15 U/L 13-39 Egfr Non- 64.1 >60 Egfr 82.4 >60 11 Laboratory test finding 11/27/2016 Acetaminophen < 15 g/mL 12 Alcohol < 10 mg/dL <10 Salicylate < 2.50 mg/dL <30 TSH (Thyroid Stim Horm) 1.11 mcIU/mL 0.34-5.60 Pathologist Review (SEE NOTE) 13 Order 11/06/2016 EKG <pending> Laboratory test finding 11/02/2016 C Reactive Protein < 1.00 mg/L < 5.00 14 Comp Metabolic Panel 11/02/2016 Sodium 139 mmol/L 133-145 Potassium 4.9 mmol/L 3.5-5.0 Chloride 108 mmol/L 101-111 Co2 Carbon Dioxide 27 mmol/L 22-32 Anion Gap 4 mmol/L 2-11 Glucose 84 mg/dL 70-100 Blood Urea Nitrogen 11 mg/dL 6-24 Creatinine 0.82 mg/dL 0.51-0.95 BUN/Creatinine Ratio 13.4 8-20 Calcium 9.8 mg/dL 8.6-10.3 Total Protein 7.2 g/dL 6.4-8.9 Albumin 4.5 g/dL 3.2-5.2 Globulin 2.7 g/dL 2-4 Albumin/Globulin Ratio 1.7 1-3 Total Bilirubin 0.30 mg/dL 0.2-1.0 Alkaline Phosphatase 90 U/L 34-104 Alt 14 U/L 7-52 Ast 21 U/L 13-39 Egfr Non- 75.1 >60 Egfr 96.5 >60 15 Laboratory test finding 11/02/2016 TSH (Thyroid Stim Horm) 1.66 mcIU/mL 0.34-5.60 Vitamin B12 258 pg/mL 180-914 16 Vitamin D Total 25(Oh) 17.3 ng/mL Low 30-50 CBC Auto Diff 11/02/2016 White Blood Count 11.3 10^3/uL High 3.5-10.8 Red Blood Count 4.25 10^6/uL 4.0-5.4 Hemoglobin 13.6 g/dL 12.0-16.0 Hematocrit 39 % 35-47 Mean Corpuscular Volume 92 fL 80-97 Mean Corpuscular Hemoglobin 32 pg High 27-31 Mean Corpuscular HGB Conc 35 g/dL 31-36 Red Cell Distribution Width 15 % 10.5-15 Platelet Count 269 10^3/uL 150-450 Mean Platelet Volume 9 um3 7.4-10.4 Abs Neutrophils 6.5 10^3/uL 1.5-7.7 Abs Lymphocytes 3.4 10^3/uL 1.0-4.8 Abs Monocytes 0.8 10^3/uL 0-0.8 Abs Eosinophils 0.4 10^3/uL 0-0.6 Abs Basophils 0.1 10^3/uL 0-0.2 Abs Nucleated RBC 0.01 10^3/uL Granulocyte % 57.7 % 38-83 Lymphocyte % 30.3 % 25-47 Monocyte % 7.4 % 1-9 Eosinophil % 3.5 % 0-6 Basophil % 1.1 % 0-2 Nucleated Red Blood Cells % 0 Drug Abuse 20 Urine 09/15/2016 Urine Amphetamine Negative ng/mL 17 Urine Barbiturates Negative ng/mL 18 Urine Benzodiazepines Negative ng/mL 19 Urine Cocaine Negative ng/mL 20 Urine Phencyclidine Negative ng/mL Cutoff: 25 Urine Tetrahydrocannabinol Negative ng/mL Cutoff: 50 21 Creatinine 31.5 mg/dL Specific [place] 1.003 pH 6.9 Oxidants Negative 22 Adulterants Comment Normal Codeine, Ur Not Detected ng/mL Cutoff: 25 23 Mdjqtzy-3-hxmd-glucuronide, Ur Not Detected ng/mL 24 Morphine, Ur Not Detected ng/mL Cutoff: 25 25 Geigrdyb-4-ghks-glucuronide, U Not Detected ng/mL 26 6-monoacetylmorphine, Ur Not Detected ng/mL Cutoff: 25 27 Hydrocodone, Ur Not Detected ng/mL Cutoff: 25 28 Norhydrocodone, Ur Not Detected ng/mL Cutoff: 25 29 Dihydrocodeine, Ur Not Detected ng/mL Cutoff: 25 30 Hydromorphone, Ur Not Detected ng/mL Cutoff: 25 31 Ubyeffgcjqkha0ohmhcqlkakaitue Not Detected ng/mL 32 Oxycodone, Ur Not Detected ng/mL Cutoff: 25 33 Noroxycodone, Ur Not Detected ng/mL Cutoff: 25 34 Oxymorphone, Ur Not Detected ng/mL Cutoff: 25 35 Rfvlahwkxkp-1-nire-glucuronide Not Detected ng/mL 36 Noroxymorphone, Ur Not Detected ng/mL Cutoff: 25 37 Fentanyl, Ur Not Detected ng/mL Cutoff: 2 38 Norfentanyl, Ur Not Detected ng/mL Cutoff: 2 39 Meperidine, Ur Not Detected ng/mL Cutoff: 25 40 Normeperidine, Ur Not Detected ng/mL Cutoff: 25 41 Naloxone, Ur Not Detected ng/mL Cutoff: 25 42 Pnwnxuoj-1-jias-glucuronide, U Not Detected ng/mL 43 Methadone, Ur Present ng/mL Cutoff: 25 44 Eddp, Ur Present ng/mL Cutoff: 25 45 Propoxyphene, Ur Not Detected ng/mL Cutoff: 25 46 Norpropoxyphene, Ur Not Detected ng/mL Cutoff: 25 47 Tramadol, Ur Not Detected ng/mL Cutoff: 25 48 O-desmethyltramadol, Ur Not Detected ng/mL Cutoff: 25 49 Tapentadol, Ur Not Detected ng/mL Cutoff: 25 50 N-desmethyltapentadol, Ur Not Detected ng/mL Cutoff: 50 51 Paguexenuo-jrgd-ndcypukoktw, U Not Detected ng/mL 52 Buprenorphine, Ur Not Detected ng/mL Cutoff: 5 53 Norbuprenorphine, Ur Not Detected ng/mL Cutoff: 5 54 Norbuprenorphine glucuronide Not Detected ng/mL Cutoff: 20 55 Opioid Interpretation See Comment 56 1 Desirable: <150 Borderline High: 150-199 High: 200-499 Very High: >500 2 Desirable: <200 Borderline High: 200-239 High: >239 3 Low: <40 Desirable: 40-60 High: >60 4 Desirable: <100 Near Optimal: 100-129 Borderline High: 130-159 High: 160-189 Very High: >189 5 REFERENCE VALUE Not Applicable 6 RESULT: HLA-B27 antigen was not detected. ADDITIONAL INFORMATION Method: Flow Cytometry Performing Laboratory CLIA# [id number] Test Performed by: [place] [address] 7 Acute inflammation: >10.00 8 Because ethnic data is not always readily available, this report includes an eGFR for both -Americans and non- Americans. The National Kidney Disease Education Program (NKDEP) does not endorse the use of the MDRD equation for patients that are not between the ages of 18 and 70, are , have extremes of body size, muscle mass, or nutritional status, or are non- or non-. According to the National Kidney Foundation, irrespective of diagnosis, the stage of the disease is based on the level of kidney function: Stage Description GFR(mL/min/1.73 m(2)) 1 Kidney damage with normal or decreased GFR 90 2 Kidney damage with mild decrease in GFR 60-89 3 Moderate decrease in GFR 30-59 4 Severe decrease in GFR 15-29 5 Kidney failure <15 (or dialysis) 9 Presumptive Positive Presumptive positive results are unconfirmed. 10 The urine specimen was tested at the listed cutoffs: Drug class test level (ng/mL) Amphetamines 500 Barbiturates 200 Benzodiazepine metabolites 200 Cocaine metabolites 150 Cannabinoids 50 Opiates 300 Pcp 25 Specimen was received without chain of custody. Results should be used for medical purposes only. 11 Because ethnic data is not always readily available, this report includes an eGFR for both -Americans and non- Americans. The National Kidney Disease Education Program (NKDEP) does not endorse the use of the MDRD equation for patients that are not between the ages of 18 and 70, are , have extremes of body size, muscle mass, or nutritional status, or are non- or non-. According to the National Kidney Foundation, irrespective of diagnosis, the stage of the disease is based on the level of kidney function: Stage Description GFR(mL/min/1.73 m(2)) 1 Kidney damage with normal or decreased GFR 90 2 Kidney damage with mild decrease in GFR 60-89 3 Moderate decrease in GFR 30-59 4 Severe decrease in GFR 15-29 5 Kidney failure <15 (or dialysis) 12 Therapeutic concentration: <50 ug/mL Toxic concentration: >120 ug/mL 13 Leukocytosis with absolute lymphocytosis suggestive of reactive process. Additional studies as clinically indicated. Reviewed by Dr. Barfield 14 Acute inflammation: >10.00 15 Because ethnic data is not always readily available, this report includes an eGFR for both -Americans and non- Americans. The National Kidney Disease Education Program (NKDEP) does not endorse the use of the MDRD equation for patients that are not between the ages of 18 and 70, are , have extremes of body size, muscle mass, or nutritional status, or are non- or non-. According to the National Kidney Foundation, irrespective of diagnosis, the stage of the disease is based on the level of kidney function: Stage Description GFR(mL/min/1.73 m(2)) 1 Kidney damage with normal or decreased GFR 90 2 Kidney damage with mild decrease in GFR 60-89 3 Moderate decrease in GFR 30-59 4 Severe decrease in GFR 15-29 5 Kidney failure <15 (or dialysis) 16 Normal Range 180 to 914 Indeterminate Range 145 to 180 Deficient Range <145 17 REFERENCE VALUE Cutoff: 500 18 REFERENCE VALUE Cutoff: 200 19 REFERENCE VALUE Cutoff: 100 20 REFERENCE VALUE Cutoff: 150 21 ADDITIONAL INFORMATION This report is intended for use in clinical monitoring or management of patients. It is not intended for use in employment-related testing. 22 REFERENCE VALUE Cutoff: 200 mg/L 23 Tylenol 3 24 Metabolite of codeine REFERENCE VALUE Cutoff: 100 25 Jaci Qiu, Contin; Also a minor metabolite (10%) of codeine and can be seen in low concentrations (<2,000 ng/mL) with poppy seed ingestion. 26 Metabolite of morphine REFERENCE VALUE Cutoff: 100 27 Metabolite of heroin 28 Lortab, [place], Vicodin; Also a very minor metabolite of codeine and impurity (<1%) of oxycodone. 29 Metabolite of hydrocodone 30 Metabolite of hydrocodone 31 Dilaudid, Exalgo; Also a metabolite of hydrocodone and a minor (<5%) metabolite of morphine. 32 Metabolite of hydromorphone REFERENCE VALUE Cutoff: 100 33 Endocet, Percocet, Oxycontin 34 Metabolite of oxycodone 35 Numorphan, Opana; Also a metabolite of oxycodone. 36 Metabolite of oxymorphone REFERENCE VALUE Cutoff: 100 37 Metabolite of oxymorphone 38 Actiq, Duragesic, [place] 39 Metabolite of fentanyl 40 Demerol 41 Metabolite of meperidine 42 Narcan 43 Metabolite of naloxone REFERENCE VALUE Cutoff: 100 44 Dolophine 45 Metabolite of methadone 46 Darvon, Darvocet 47 Metabolite of propoxyphene 48 Tradol, Ultram, Ultracet 49 Metabolite of tramadol 50 Nucynta 51 Metabolite of tapentadol 52 Metabolite of tapentadol REFERENCE VALUE Cutoff: 100 53 Buprenex, Suboxone 54 Metabolite of buprenorphine 55 Metabolite of buprenorphine 56 Test detected the presence of methadone and its metabolite (EDDP). Suspect use of methadone within the past seven days. ADDITIONAL INFORMATION This test was developed and its performance characteristics determined by [facility] in a manner consistent with CLIA requirements. This test has not been cleared or approved by the U.S. Food and Drug Administration. Test Performed by: [address] [address] Procedures Date CPT Code Description Status 03/26/2017 Mammogram Completed 11/06/2016 65398 EKG Tracing & Interpretation Completed Encounters Type Date Location Provider CPT E/M Dx Office Visit 09/24/2017 2:00p [facility] Medicine MIKALA Pena [address] J01.90 - [address] J30.9 L55.0 Office Visit 08/18/2017 11:20a [facility] MIKALA Pena [address]106 F17.210 - [address] R19.5 R19.7 G89.4 F41.9 G47.61 Office Visit 03/25/2017 4:00p [facility] Internal Farhan Yu M.D. 92198 R19.5 Medicine - [address] R19.7 Office Visit 02/09/2017 1:00p [facility] Farhan Yu M.D. 61386 G89.4 Medicine - [address] M41.9 M25.512 Office Visit 01/20/2017 10:00a [facility] Medicine MIKALA Pena [address]13 R19.5 - [address] Office Visit 11/26/2016 2:00p [facility] Medicine Farhan Yu [address]37 F33.0 - [address] Pia M54.5 Office Visit 11/20/2016 12:00p [facility] Medicine Kenny Taylor, [address]483 G89.4 - [address] iPa,FACP G47.61 I45.81 G47.00 Office Visit 11/06/2016 1:40p [facility] Medicine Kenny Taylor, [address]32 G89.4 - [address] M.Melanie,FACP G47.61 I45.81 Office Visit 10/28/2016 1:40p [facility] Medicine MIKALA Pena [address]43 G47.00 - [address] F41.9 R53.83 M79.669 Office Visit 10/14/2016 10:40a [facility] Medicine - [place], [employer] [address] M79.669 G47.61 G47.00 F11.90 M79.604 M79.605 Office Visit 09/15/2016 11:40a [facility] Farhan Yu M.D. 09877 M54.5 Medicine - [address] F33.0 Office Visit 08/13/2016 3:20p [facility] Farhan Yu M.D. 19483 F41.0 Medicine - [address] F33.0 G47.00 G47.61 E78.2 M54.5 Z00.00 Plan of Care 01/20/2018 - Farhan Yu M.D.R10.30 Lower abdominal pain, unspecifiedNew Labs:Urinalysis ProfileNew Xrays:US Renal And BladderComments:If you get recurrent pain need to go to urgent care or ERFollow up:After US done
--- NOTE | 2018-01-31 22:27 | ED ---
Back Pain - HPI Summary HPI Summary: Patient complains of waking up with left lower back pain. Pain is progressive. History of same. Denies with radiation, incontinence, urinary retention, trauma, heavy lifting, fever, N/V. History of scoliosis. - History of Current Complaint Chief Complaint: EDBackInjuryPain Stated Complaint: BACK PAIN Time Seen by Provider: 01/31/18 20:19 Hx Obtained From: Patient Onset/Duration: Sudden Onset Onset/Duration: Started Days Ago Timing: Constant Severity Initially: Severe Severity Currently: Severe Pain Intensity: 10 Pain Scale Used: 0-10 Numeric Character: Sharp Aggravating Symptom(s): Movement, Walking Alleviating Symptom(s): Rest Associated Signs And Symptoms: Positive: Negative - Allergies/Home Medications Allergies/Adverse Reactions: Allergies Allergy/AdvReac Type Severity Reaction Status Date / Time hydromorphone [From Dilaudid] AdvReac Rash Verified 01/31/18 20:24 ketorolac [From Toradol] AdvReac Nausea Verified 01/31/18 20:24 morphine AdvReac Rash Verified 01/31/18 20:24 nalbuphine [From Nubain] AdvReac Nausea Verified 01/31/18 20:24 PMH/Surg Hx/FS Hx/Imm Hx Endocrine/Hematology History: Denies: Hx Anticoagulant Therapy Cardiovascular History: Denies: Hx Cardiac Arrest History: Denies: Hx Dialysis Musculoskeletal History: Reports: Hx Back Problems - scoliosis Sensory History: Denies: Hx Contacts or Glasses, Hx Hearing Aid Opthamlomology History: Denies: Hx Contacts or Glasses Neurological History: Reports: Other Neuro Impairments/Disorders - Restless leg syndrome Psychiatric History: Reports: Hx Anxiety, Hx Depression, Hx Community Mental Health Tx Denies: Hx Eating Disorder, Hx of Violent Episodes Against Others - Cancer History Hx Chemotherapy: No Hx Radiation Therapy: No - Immunization History Immunizations Up to Date: Yes Infectious Disease History: No Infectious Disease History: Denies: Traveled Outside the [place] in Last 30 Days - Social History Alcohol Use: None Hx Substance Use: No Substance Use Type: Reports: None Hx Tobacco Use: Yes Smoking Status (MU): Current Every Day Smoker Type: Cigarettes Amount Used/How Often: 11 cigs/day and used no other tobacco products in last 30 days Review of Systems Constitutional: Negative Eyes: Negative ENT: Negative Cardiovascular: Negative Respiratory: Negative Gastrointestinal: Negative Genitourinary: Negative Musculoskeletal: Other Skin: Negative Neurological: Negative Psychological: Normal All Other Systems Reviewed And Are Negative: Yes Physical Exam - Summary Physical Exam Summary: Pain with palpation of left lower back. No masses, deformity, erythema, ecchymosis, swelling noted along the spine. PMS intact on bilateral lower extremities. Triage Information Reviewed: Yes Vital Signs On Initial Exam: Initial Vitals Temp Pulse Resp BP Pulse Ox 98.8 F 73 15 156/95 100 01/31/18 19:23 01/31/18 19:23 01/31/18 19:23 01/31/18 19:23 01/31/18 19:23 Vital Signs Reviewed: Yes Appearance: Positive: Well-Appearing Skin: Positive: Warm Head/Face: Positive: Normal Head/Face Inspection Eyes: Positive: Normal Neck: Positive: Supple Respiratory/Lung Sounds: Positive: Clear to Auscultation Cardiovascular: Positive: Normal Abdomen Description: Positive: Nontender Musculoskeletal: Positive: Normal Neurological: Positive: Normal Psychiatric: Positive: Normal AVPU Assessment: Alert - [place] Coma Scale Best Eye Response: 4 - Spontaneous Best Motor Response: 6 - Obeys Commands Best Verbal Response: 5 - Oriented Coma Scale Total: 15 Diagnostics - Vital Signs Vital Signs Temp Pulse Resp BP Pulse Ox 01/31/18 21:32 16 01/31/18 19:23 98.8 F 73 15 156/95 100 - Laboratory Lab Statement: Any lab studies that have been ordered have been reviewed, and results considered in the medical decision making process. Back Pain Course/Dx - Course Course Of Treatment: Patient complains of waking up with left lower back pain. Pain is progressive. History of same. Denies with radiation, incontinence, urinary retention, trauma, heavy lifting, fever, N/V. History of scoliosis. Physical exam:Pain with palpation of left lower back. No masses, deformity, erythema, ecchymosis, swelling noted along the spine. PMS intact on bilateral lower extremities. Back pain improved somewhat with Valium. Rx for prednisone and Valium. Follow-up with orthopedics - Diagnoses Provider Diagnoses: Acute back pain Discharge - Sign-Out/Discharge Documenting (check all that apply): Patient Departure - Discharge Plan Condition: Stable Disposition: HOME Prescriptions: Diazepam TAB(*) [Valium TAB(*)] 5 mg PO TID PRN 2 Days #5 tab MDD 3 tabs PRN Reason: Pain predniSONE TAB* [Deltasone 20 MG TAB*] 40 mg PO DAILY 5 Days #5 tab Patient Education Materials: Acute Low Back Pain (ED) Referrals: Farhan Yu MD [Primary Care Provider] - Lucretia Lua MD [Medical Doctor] - Additional Instructions: If pain does not improve in 4 days follow-up with Orthopedics Dr. Lua. Return to the ED for any new or worsening symptoms - Billing Disposition and Condition Condition: STABLE Disposition: Home
[2018-01-31 22:33] VITALS: BP 150/88
== END 2018-01-31 22:32 | disposition home or self-care (01) ==
LOC: ED 19:20
DX: M54.5 Low back pain (principal); M41.9 Scoliosis, unspecified; F17.210 Nicotine dependence, cigarettes, uncomplicated; Z88.5 Allergy status to narcotic agent
CPT/HCPCS: 99282; A9270-GY; J7512